=== PATIENT | male | born 1965 | race Caucasian/White ===

== ENCOUNTER 2018-01-11 13:43 | Emergency (ER) | payer BC ==
[~2018-01-11 13:43] MED LIST: DILA2TAB4 PO; IBUP-232 PO; LORT5TAB PO; PROM25SU8 PO; TAMS0.4C67 PO; Z.0.NO CURRENT MEDS
[2018-01-11] MEDS ORDERED: MORPHINE SULFATE 4 MG/ML INJ IV PUSH ONE (14:00)
[2018-01-11] MEDS ORDERED: ASPIRIN 81 MG CHEW TAB PO ONE (14:00)
[2018-01-11] MEDS ORDERED: SODIUM CHLORIDE 0.9% FLUSH 10 ML FLUSH IVF PRN (14:00)
[2018-01-11 14:09] LABS: AUTOMATED NEUTROPHIL # 2.6 TH/MM3 (1.8-7.7); BASOPHIL % 0.4 % (0.0-2.0); EOSINOPHIL # 0.1 TH/MM3 (0-0.4); EOSINOPHIL % 2.2 % (0.0-4.0); HEMATOCRIT 41.4 % (39.0-51.0); HEMOGLOBIN 14.4 GM/DL (13.0-17.0); LYMPH % 29.7 % (9.0-44.0); LYMPHOCYTE # 1.3 TH/MM3 (1.0-4.8); MEAN CELL VOLUME 85.6 FL (80.0-100.0); MEAN CORPUSCULAR HEMOGLOBIN 29.6 PG (27.0-34.0); MEAN CORPUSCULAR HGB CONC 34.7 % (32.0-36.0); MEAN PLATELET VOLUME 8.1 FL (7.0-11.0); MONO % 5.6 % (0.0-8.0); MONOCYTE # 0.2 TH/MM3 (0-0.9); NEUT % 62.1 % (16.0-70.0); PLATELET COUNT 177 TH/MM3 (150-450); RED BLOOD COUNT 4.84 MIL/MM3 (4.50-5.90); RED CELL DISTRIBUTION WIDTH 12.3 % (11.6-17.2); WHITE BLOOD COUNT 4.2 TH/MM3 (4.0-11.0)
[2018-01-11 14:17] LABS: CHLORIDE 103 MEQ/L (98-107); SODIUM (NA) 137 MEQ/L (136-145)
[2018-01-11 14:21] LABS: BICARBONATE 28.1 MEQ/L (21.0-32.0); CALCIUM 9.1 MG/DL (8.5-10.1); GLUCOSE,RANDOM 97 MG/DL (74-106); PROTHROMBIN TIME - PATIENT 10.6 SEC (9.8-11.6)
[2018-01-11 14:22] LABS: BLOOD UREA NITROGEN 11 MG/DL (7-18)
[2018-01-11 14:24] LABS: ALT (GPT) 32 U/L (12-78); AST (GOT) 26 U/L (15-37)
[2018-01-11 14:25] LABS: GLOMERULAR FILTRATION RATE 70 ML/MIN (>89)
[2018-01-11 14:26] LABS: TOTAL BILIRUBIN ADULT 0.6 MG/DL (0.2-1.0)
[2018-01-11 14:27] VITALS: BP 147/88; PULSE 60; RESP 15; TEMP 98.3; O2SAT 92
[2018-01-11 14:27] LABS: ALKALINE PHOSPHATASE 55 U/L (45-117)
[2018-01-11 14:29] LABS: TROPONIN I LESS THAN 0.02 NG/ML (0.02-0.05)
[2018-01-11 14:35] VITALS: BP_SYST 126; BP_SYST 135; BP_DIAS 88; BP_DIAS 89; PULSE 66; RESP 17; O2SAT 95
--- NOTE | 2018-01-11 14:36 | RADRPT ---
EXAM DATE/TIME: 01/11/2018 14:10 [facility] COMPARISON: No previous studies available for comparison. INDICATIONS : Chest pain since last night. MEDICAL HISTORY : None. SURGICAL HISTORY : None. ENCOUNTER: Initial ACUITY: 2 days PAIN SCORE: 0/10 LOCATION: Bilateral chest FINDINGS: A single view of the chest demonstrates the lungs to be symmetrically aerated without evidence of mas s, infiltrate or effusion. The cardiomediastinal contours are unremarkable. Osseous structures are intact. CONCLUSION: No acute disease. Juliocesar Palencia Jr., MD on January 11, 2018 at 14:34 Board Certified Radiologist. This report was verified electronically.
--- NOTE | 2018-01-11 14:51 | PD ---
HPI Chief Complaint: Chest Pain Time Seen by Provider: 13:53 Travel History International Travel<30 days: No Contact w/Intl Traveler<30days: No Traveled to known affect area: No History of Present Illness HPI Patient is a 52-year-old male who comes in complaining of left-sided chest pain. He says last night he had some left upper abdominal pain, he thought it was indigestion, because it was relieved by belching. He says he went to work today, and got severe left-sided chest pain. His reports that when he came home, he was profusely sweating. He has a strong family history of heart disease. He denies any shortness of breath. He has had some nausea with this. He did not take anything for his symptoms. Nothing seems to improve or worsen his symptoms. Severity is moderate. PFSH Past Medical History Blood Disorders: No Cancer: No Cardiovascular Problems: No Diminished Hearing: No Endocrine: No Immune Disorder: No Kidney Stones: Yes Musculoskeletal: No Neurologic: No Psychiatric: No Influenza Vaccination: No ?: Not Past Surgical History Genitourinary Surgery: Yes (Vasectomy) Oral Surgery: Yes (NASAL POYLPS, THROAT POYLPS) Tonsillectomy: Yes Other Surgery: Yes Social History Alcohol Use: No Tobacco Use: No Substance Use: No Allergies-Medications (Allergen,Severity, Reaction): Coded Allergies: No Known Allergies (Verified Adverse Reaction, Unknown, 01/11/18) Reported Meds & Prescriptions Reported Meds & Active Scripts Active No Active Prescriptions or Reported Medications Review of Systems Except as stated in HPI: all other systems reviewed are Neg General / Constitutional: No: Fever, Chills HENT: No: Headaches, Lightheadedness Cardiovascular: Positive: Chest Pain or Discomfort Respiratory: No: Cough Gastrointestinal: Positive: Nausea Musculoskeletal: No: Myalgias, Edema Skin: No Rash, No Change in Pigmentation Neurologic: No: Weakness, Dizziness Physical Exam Narrative GENERAL: Awake and alert, no acute distress. SKIN: Focused skin assessment warm/dry. No wounds or signs of infection. HEAD: Atraumatic. Normocephalic. EYES: Pupils equal and round. No scleral icterus. ENT: Mucous membranes pink and moist. NECK: Trachea midline. No JVD. CARDIOVASCULAR: Regular rate and rhythm. No murmur appreciated. RESPIRATORY: No accessory muscle use. Clear to auscultation. Breath sounds equal bilaterally. GASTROINTESTINAL: Abdomen soft, non-tender, nondistended. MUSCULOSKELETAL: No obvious deformities. No clubbing. No cyanosis. No edema. NEUROLOGICAL: Awake and alert. No obvious cranial nerve deficits. Motor grossly within normal limits. Normal speech. PSYCHIATRIC: Appropriate mood and affect; insight and judgment normal. Data Data Last Documented VS Vital Signs Date Time Temp Pulse Resp B/P (MAP) Pulse Ox O2 Delivery O2 Flow Rate FiO2 01/11/18 14:35 96 Room Air 01/11/18 14:35 66 17 126/88 (101) 135/89 (104) 01/11/18 14:27 98.3 Orders Orders Ckmb (Isoenzyme) Profile (01/11/18 13:54) Complete Blood Count With Diff (01/11/18 13:54) Comprehensive Metabolic Panel (01/11/18 13:54) Prothrombin Time / Inr (Pt) (01/11/18 13:54) Act Partial Throm Time (Ptt) (01/11/18 13:54) Troponin I (01/11/18 13:54) Lipase (01/11/18 13:54) Chest, Single Ap (01/11/18 13:54) Ecg Monitoring (01/11/18 13:54) Bilateral Bp Monitoring (01/11/18 13:54) Iv Access Insert/Monitor (01/11/18 13:54) Oximetry (01/11/18 13:54) Oxygen Administration (01/11/18 13:54) Aspirin Chew (Aspirin Chew) (01/11/18 14:00) Morphine Inj (Morphine Inj) (01/11/18 14:00) Sodium Chloride 0.9% Flush (Ns Flush) (01/11/18 14:00) Ct Brain W/O Iv Contrast(Rout) (01/11/18 ) Electrocardiogram (01/11/18 13:47) Labs Laboratory Tests Test 01/11/18 14:00 White Blood Count 4.2 TH/MM3 Red Blood Count 4.84 MIL/MM3 Hemoglobin 14.4 GM/DL Hematocrit 41.4 % Mean Corpuscular Volume 85.6 FL Mean Corpuscular Hemoglobin 29.6 PG Mean Corpuscular Hemoglobin Concent 34.7 % Red Cell Distribution Width 12.3 % Platelet Count 177 TH/MM3 Mean Platelet Volume 8.1 FL Neutrophils (%) (Auto) 62.1 % Lymphocytes (%) (Auto) 29.7 % Monocytes (%) (Auto) 5.6 % Eosinophils (%) (Auto) 2.2 % Basophils (%) (Auto) 0.4 % Neutrophils # (Auto) 2.6 TH/MM3 Lymphocytes # (Auto) 1.3 TH/MM3 Monocytes # (Auto) 0.2 TH/MM3 Eosinophils # (Auto) 0.1 TH/MM3 Basophils # (Auto) 0.0 TH/MM3 CBC Comment DIFF FINAL Differential Comment Prothrombin Time 10.6 SEC Prothromb Time International Ratio 1.0 RATIO Activated Partial Thromboplast Time 23.2 SEC Blood Urea Nitrogen 11 MG/DL Creatinine 1.10 MG/DL Random Glucose 97 MG/DL Total Protein 7.0 GM/DL Albumin 4.0 GM/DL Calcium Level 9.1 MG/DL Alkaline Phosphatase 55 U/L Aspartate Amino Transf (AST/SGOT) 26 U/L Alanine Aminotransferase (ALT/SGPT) 32 U/L Total Bilirubin 0.6 MG/DL Sodium Level 137 MEQ/L Potassium Level 3.9 MEQ/L Chloride Level 103 MEQ/L Carbon Dioxide Level 28.1 MEQ/L Anion Gap 6 MEQ/L Estimat Glomerular Filtration Rate 70 ML/MIN Total Creatine Kinase 88 U/L Troponin I LESS THAN 0.02 NG/ML Lipase 109 U/L MDM Medical Decision Making Medical Screen Exam Complete: Yes Emergency Medical Condition: Yes Medical Record Reviewed: Yes Interpretation(s) ECG shows an incomplete right bundle branch block, no ST elevation or depression. Differential Diagnosis ACS versus an STEMI versus STEMI versus pneumonia versus costochondritis versus pneumothorax Narrative Course Patient is a 52-year-old male who comes in complaining of left-sided chest pain. He says he has also been getting intermittent numbness of the right side of his face. Exam shows no acute abnormalities. There are no neurologic abnormalities on exam. IV established, labs sent. Patient connected to the director of cardiac cath lab. Labs show no acute abnormalities. First troponin is negative. Given a dose of aspirin. Chest x-ray shows no acute abnormalities. I spent several minutes speaking with the patient and his advising the patient to stay for further testing. I explained that while his first set of blood work is normal, it takes time for the blood work to become abnormal and that he should stay for a stress test to make sure his heart is okay. I explained that if he is indeed having a heart attack, he could go home and become very ill and . He is alert and oriented and understands the risks of leaving AGAINST MEDICAL ADVICE. AMA: The risks of leaving against medical advice without further evaluation treatment were discussed with the patient. These risks include cardiac dysfunction, cardiac dysrhythmia, possible heart attack, possible stroke or . The patient indicated understanding of these risks and appeared to have the capacity to make this decision. Diagnosis Primary Impression: Chest pain Qualified Codes: R07.9 - Chest pain, unspecified Patient Instructions: Chest Pain (ED), General Instructions Scripts No Active Prescriptions or Reported Meds Disposition: 07 AGAINST MEDICAL ADVICE Kristi Camarillo MD Jan 11, 2018 14:51
--- NOTE | 2018-01-11 15:21 | RADRPT ---
EXAM DATE/TIME: 01/11/2018 15:01 [facility] COMPARISON: No previous studies available for comparison. INDICATIONS : Intermittent facial numbness since last night. RADIATION DOSE: 64.69 CTDIvol (mGy) MEDICAL HISTORY : Renal calculi. SURGICAL HISTORY : Tonsillectomy. Orthopedic surgery. ENCOUNTER: Initial ACUITY: 2 days PAIN SCALE: 0/10 LOCATION: Bilateral cranial TECHNIQUE: Multiple contiguous axial images were obtained of the head. Using automated exposure control and adj ustment of the mA and/or kV according to patient size, radiation dose was kept as low as reasonably a chievable to obtain optimal diagnostic quality images. DICOM format image data is available electro nically for review and comparison. FINDINGS: CEREBRUM: The ventricles are normal for age. No evidence of midline shift, mass lesion, hemorrhage or acute in farction. No extra-axial fluid collections are seen. POSTERIOR FOSSA: The cerebellum and brainstem are intact. The 4th ventricle is midline. The cerebellopontine angle i s unremarkable. EXTRACRANIAL: The visualized portion of the orbits is intact. SKULL: The calvaria is intact. No evidence of skull fracture. CONCLUSION: 1. No acute intracranial abnormality. Virgil Ahn MD on January 11, 2018 at 15:13 Board Certified Radiologist. This report was verified electronically.
[2018-01-11 16:28] VITALS: BP 135/92
--- NOTE | 2018-01-12 22:09 | EKG ---
Date Performed: 01/11/2018 Time Performed: 13:47:50 PTAGE: 52 years EKG: Sinus rhythm INCOMPLETE RIGHT BUNDLE BRANCH BLOCK BORDERLINE ECG PREVIOUS TRACING : 07/17/2009 07.03 Since the prior tracing, there has been no significant judd DOCTOR: Pedro Aguilar Interpretating Date/Time 01/12/2018 22:08:37
== END 2018-01-11 16:31 | disposition left against medical advice (07) ==
LOC: PHED 13:43
DX: R07.9 Chest pain, unspecified (principal); I45.10 Unspecified right bundle-branch block; Z82.49 Family history of ischemic heart disease and other diseases of the circulatory system
CPT/HCPCS: 70450; 71045; 80053; 82550; 83690; 84484; 85025; 85610; 85730; 93005; 96374; 99285; J2270